=== PATIENT | male | born 1990 | race African-American/Black ===

== ENCOUNTER → 2016-09-19 | Day surgery (SDC) | payer OTHER ==
[~2016-09-19] VITALS: Ht 172.7 cm; Wt 86.2 kg
[~2016-09-19] MED LIST: BACT800T5 PO; BUPIVACAINE HCL 0.25% 30 ML VIAL As Ordered ONE; BUPIVACAINE HCL 0.25% 30 ML VIAL XX ONE; KETOROLAC 60 MG/2 ML VIAL (J1885) As Ordered ONE; LIDOCAINE 2% INJ 100 MG/5 ML SDV (FOR ANES.) As Ordered ONE; LIDOCAINE 2% MDV 20 ML VIAL As Ordered ONE; LIDOCAINE 2% MDV 20 ML VIAL XX ONE; LR 1,000 ML IV SCH; METOCLOPRAMIDE INJ 10MG/2ML VIAL (J2765) IV PRN; MIDAZOLAM INJ 2 MG/2 ML VIAL (J2250) As Ordered ONE; MORPHINE 2 MG/ML 1ML SYRINGE IV PRN; ONDANSETRON 4MG/2ML VIAL (J2405) As Ordered ONE; ONDANSETRON 4MG/2ML VIAL (J2405) IV PRN; PERCOCET 5MG/325MG TAB PO PRN; PERCOCET PO; PROPOFOL 200 MG/20 ML VIAL As Ordered ONE; dexameTHASONE 4 MG/ML 1ML VIAL (J1100) As Ordered ONE; fentaNYL 100 MCG/2 ML INJECTION (J3010) IV PRN; fentaNYL 250 MCG/5 ML INJECTION (J3010) As Ordered ONE; pain medicine PO
[2016-09-19 17:05] VITALS: BP 148/80
--- NOTE | 2016-09-21 05:42 | RO ---
DATE OF PROCEDURE: 09/19/2016 PREOPERATIVE DIAGNOSIS: Left varicocele. POSTOPERATIVE DIAGNOSIS: Left varicocele. PROCEDURE: Left varicocele repair. SURGEON: Dr. Levon Doherty. COMMUTATOR ASSEMBLER: None. ANESTHESIA: General. COMPLICATIONS: None. ESTIMATED BLOOD LOSS: N/A. HISTORY OF PRESENT ILLNESS: 26-year-old male patient that has a left varicocele and has consented for left varicocele repair. PROCEDURE DESCRIPTION: In a patient under general anesthesia in supine position, after prepping and draping the area of concern which included the entire genitalia and abdomen, we started by doing a transverse incision in the inguinal canal at the level of the external inguinal ring for about 4 cm in length. Through this incision, with electro Bovie cautery, we opened the Camper's and the Jyoti fascia. We then opened the external oblique fascia and the external inguinal ring. We identified the spermatic cord and dissected the tunica spermatica externa and also the internal tunica spermatica. We then isolated the varicosity veins and dissected them. We clamped the varicosity veins with mosquito clamps and then cut the varicosity veins and sent it for permanent pathology analysis. We placed a suture ligation stitch #3-0 nylon and then a #3-0 tie on each side. We then proceeded to fulgurate all bleeding vessels. The vas deferens was completely persevered and isolated. We then dropped the spermatic cord into the inguinal canal and closed the anterior oblique fascia with running #2-0 Vicryl. We then proceeded to close the Jyoti and Camper's with catgut chromic #3-0. We closed the skin with #3-0 subcuticular stitches of Monocryl. We then placed Mastisol, Steri-Strips, telfa, and Tegaderm. There were no complications during surgery. PLAN: The patient will go home with antibiotic and pain medication. Followup at [facility] in 2 weeks.
== END ==
LOC: M SDC 11:17
PROVIDERS: ATTEND Urology
DX: I86.1 Scrotal varices (principal); N50.812 Left testicular pain; R07.9 Chest pain, unspecified; M54.9 Dorsalgia, unspecified; G47.9 Sleep disorder, unspecified
CPT/HCPCS: 55530; 88302; J0690; J1100; J1885; J2250; J2405; J3010

== ENCOUNTER → 2017-04-12 | Outpatient (REF) | payer OTHER ==
[~2017-04-12] MED LIST changes: -BUPIVACAINE HCL 0.25% 30 ML VIAL As Ordered ONE; -BUPIVACAINE HCL 0.25% 30 ML VIAL XX ONE; -KETOROLAC 60 MG/2 ML VIAL (J1885) As Ordered ONE; -LIDOCAINE 2% INJ 100 MG/5 ML SDV (FOR ANES.) As Ordered ONE; -LIDOCAINE 2% MDV 20 ML VIAL As Ordered ONE; -LIDOCAINE 2% MDV 20 ML VIAL XX ONE; -LR 1,000 ML IV SCH; -METOCLOPRAMIDE INJ 10MG/2ML VIAL (J2765) IV PRN; -MIDAZOLAM INJ 2 MG/2 ML VIAL (J2250) As Ordered ONE; -MORPHINE 2 MG/ML 1ML SYRINGE IV PRN; -ONDANSETRON 4MG/2ML VIAL (J2405) As Ordered ONE; -ONDANSETRON 4MG/2ML VIAL (J2405) IV PRN; -PERCOCET 5MG/325MG TAB PO PRN; -PROPOFOL 200 MG/20 ML VIAL As Ordered ONE; -dexameTHASONE 4 MG/ML 1ML VIAL (J1100) As Ordered ONE; -fentaNYL 100 MCG/2 ML INJECTION (J3010) IV PRN; -fentaNYL 250 MCG/5 ML INJECTION (J3010) As Ordered ONE
[2017-04-12 14:36] LABS: CONTROL LINE HPYORI INT CTR LINE PRESENT
[2017-04-12 14:46] LABS: HEPATITIS B SURFACE ANTIBODY POSITIVE (POSITIVE)
[2017-04-12 14:51] LABS: ERYTHROCYTE SEDIMENTATION RATE 3 mm/hr (0-15)
[2017-04-12 14:59] LABS: REASON FOR REVIEW COMPREHENSIVE REVIEW
== END ==
LOC: M LAB REF 13:57
PROVIDERS: ATTEND Internal Medicine Medical Oncology
DX: D69.6 Thrombocytopenia, unspecified (principal)

== ENCOUNTER → 2017-04-15 | Outpatient (CLI) | payer OTHER ==
--- NOTE | 2017-04-15 08:14 | REP ---
Complete abdomen ultrasound: There is no cholelithiasis, gallbladder wall thickening or pericholecystic fluid. There is no intrahepatic or extrahepatic biliary duct dilatation, the common duct measures 4.3 mm in diameter. The hepatic parenchyma is homogeneous. There are no hepatic masses. The pancreas is obscured by bowel gas. The spleen is normal size measuring 9.5 x 4.2 x 9.0 cm with a splenic index of 359. No focal splenic lesions are identified. The kidneys are normal size. Right kidney measures 10.5 x 6.7 x 4.3 cm. Left kidney measures 11.7 x 5.4 and 3 cm. There is no hydronephrosis, calculus, mass or cyst in the right and the left kidneys. There is no abdominal aortic aneurysm. The aorta is otherwise unremarkable. There is no free fluid. Impression: Essentially negative complete abdominal ultrasound. The spleen is normal size. The pancreas is obscured by bowel gas. Signed by Kendell Joseph MD 04/15/2017 08:06 A
== END ==
LOC: M RAD 06:30
PROVIDERS: ATTEND Internal Medicine Medical Oncology
DX: D69.6 Thrombocytopenia, unspecified (principal)
CPT/HCPCS: 76700; G0463